=== PATIENT | male | born 1945 | race Caucasian/White ===

== ENCOUNTER 2022-04-24 15:21 | Emergency (ER) | payer MEDICARE, OTHER ==
[2022-04-24] MEDS: methylPREDNISolone Sodium Succinate 125 MG/2 ML SDV IM ONE (16:02)
== END 2022-04-24 16:05 | disposition home or self-care (01) ==
LOC: VM.ED 15:21
DX: L50.9 Urticaria, unspecified (principal); Z79.899 Other long term (current) drug therapy
CPT/HCPCS: 96372; 99282; 99283; J2930